=== PATIENT | male | born 1940 | race Caucasian/White ===

== ENCOUNTER → 2016-04-20 | Outpatient (CLI) | payer OTHER, BC ==
--- NOTE | 2016-04-20 15:42 | MR ---
Unenhanced MRI of the Lumbar Spine Clinical History: 75-year-old male with lumbago, bilateral leg weakness, and hyperreflexia. ICD 10 Diagnostic Code: R29.898. Technique: Sagittal T1, FSE T2, and STIR sequences were obtained from T11 through the mid-sacrum, and supplemented by stacked axial T1 and T2 weighted sequences. Comparison Study: Lumbar spine radiographs, dated March 21, 2013. Findings: The vertebral body heights are maintained. There is 5 mm of L4 anterolisthesis above L5. Th e posterior alignment is otherwise unremarkable. Bone marrow signal is notable for some cortical endp late degenerative changes at L3-L4 and at L5-S1, as well as along the anterior/inferior portion of T1 1. The visualized portions of the prevertebral soft tissues are notable only for a small cortical cys t in the medial midpole of the right kidney. The abdominal aorta is normal in size. There is no adeno reina or ascites visualized. The conus medullaris has a normal morphology, terminating at L2. At T11-T12 level, there is ijvdrxki-gv-murqva degenerative disk space narrowing and desiccation with ventral disk bulging. There is some minimal dorsal circumferential disk bulging, with no significant central canal or neural foraminal impingement. The T12-L1 and L1-L2 levels have normal disk space height and signal, and there is no focal disk priya iation, canal stenosis, or neural foraminal impingement. At the L2-L3 level, there is mild bilateral facet hypertrophy and some ligamentum flavum thickening. There is no focal disk herniation, although there is a tiny annular tear present. The central canal a nd neural foramina remain patent. At the L3-L4 level, there is severe degenerative disc space narrowing with some Schmorl's nodes and c ortical endplate Modic change. Ventral and circumferential dorsal disk bulging with facet hypertrophy and ligamentum flavum thickening results in mild central canal stenosis. These features are slightly asymmetric along the right paracentral aspect. There is a mild degree of right neural foraminal narr owing. At the L4-L5 level, there is the aforementioned grade 1 anterolisthesis. There is upoharmv-zd-jnzmqw degenerative disc space narrowing, with diffuse disk desiccation. There is a tiny annular tear presen t, with broad-based circumferential disk bulging, with an asymmetric right neural foraminal component . There is facet hypertrophy and ligamentum flavum thickening. These features result in a moderate de gree of central canal stenosis, narrowing the AP canal diameter to 9 mm. There is mild left and moder ate right neural foraminal stenosis. At the L5-S1 level, there is moderate bilateral facet hypertrophy. There is xrzbfrtf-cu-ccuzid disk s pace narrowing and diffuse disk desiccation. There is no significant central canal stenosis. There is minimal bilateral neural foraminal stenosis. Impression: 1. Advanced degenerative disk disease at T11-T12, L3-L4, L4-L5, and L5-S1, with tiny annular tears se en at L2-L3 and at L4-L5. 2. Grade 1 anterolisthesis at L4-L5. 3. Moderate central canal stenosis at L4-L5 with mild left and moderate right neural foraminal stenos is, the latter resulting from facet hypertrophy and a neuroforaminal disk bulge.
== END ==
LOC: FIMAGING 14:39
PROVIDERS: ATTEND Psychiatry & Neurology Neurology
DX: M54.5 Low back pain (principal); R29.2 Abnormal reflex; M51.35 Other intervertebral disc degeneration, thoracolumbar region

== ENCOUNTER → 2016-04-30 | Outpatient (CLI) | payer OTHER, BC ==
--- NOTE | 2016-04-30 12:53 | DX ---
Video Fluoroscopy Speech Study Clinical indication: Dysphagia. Fluoroscopy time: 1.6 minutes. Dose: 4.2 mGy. Findings: There is trace penetration without aspiration with thin liquids. Very mild weakness at the base of the tongue with early leakage of the bolus is noted. There is no evidence of aspiration or pe netration with puree, solids, or the tablet. Impression: Trace penetration without aspiration with thin liquids. Please see separate note for tawana therapist's recommendations.
== END ==
PROVIDERS: ATTEND Psychiatry & Neurology Neurology
DX: R13.12 Dysphagia, oropharyngeal phase (principal)
CPT/HCPCS: 74230; 92611; G8996; G8997; G8998

== ENCOUNTER → 2016-06-15 | Outpatient (CLI) | payer OTHER, BC ==
[~2016-06-15] MED LIST: GADOBUTROL 10 ML VIAL IVP ONE
== END ==
LOC: FIMAGING 09:22
PROVIDERS: ATTEND Physician Assistant
DX: R94.02 Abnormal brain scan (principal); H90.5 Unspecified sensorineural hearing loss
CPT/HCPCS: 70553; A9585

== ENCOUNTER → 2017-08-03 | Outpatient (CLI) | payer OTHER, BC | LOC: FIMAGING 09:52 | PROVIDERS: ATTEND Urology | DX: N40.2 Nodular prostate without lower urinary tract symptoms (principal) | CPT/HCPCS: 72197; 76377; A9585 ==